=== PATIENT | female | born 1940 | race Caucasian/White ===

== ENCOUNTER 2023-10-14 16:47 | Inpatient (IN) | payer OTHER ==
[2023-10-14 17:36] LABS: BASO % 0.8 % (0-2.0); EOS % 0.9 % (0-4.5); HEMATOCRIT 53.7 % (32.4-45.2); HEMOGLOBIN 17.4 GM/dL (10.7-15.3); LYMPH % 21.5 % (8-40); MCH 30.3 pg (25.7-33.7); MCHC 32.5 g/dl (32.0-36.0); MEAN CELL VOLUME 93.4 fl (80-96); MEAN PLT VOLUME 9.4 fl (7.5-11.1); MONO % 15.2 % (3.8-10.2); NEUT % 61.6 % (42.8-82.8); PLATELET COUNT 116 10^3/uL (134-434); RBC 5.75 M/mm3 (3.60-5.2); RDW 16.2 % (11.6-15.6); WHITE BLOOD COUNT 10.1 K/mm3 (4.0-10.0)
[2023-10-14 17:43] LABS: INR 1.23 (0.83-1.09); PROTHROMBIN TIME (PATIENT) 14.2 SEC (9.7-13.0)
[2023-10-14 17:46] LABS: ACTIVATED PTT 30.5 SECONDS (25.2-36.5)
[2023-10-14 17:58] LABS: POTASSIUM 3.8 mmol/L (3.5-5.1)
[2023-10-14 18:01] LABS: BLOOD UREA NITROGEN 56.8 mg/dL (7-18); CALCIUM 10.5 mg/dL (8.5-10.1); MAGNESIUM 2.5 mg/dL (1.8-2.4)
[2023-10-14 18:02] LABS: ALBUMIN 3.6 g/dl (3.4-5.0)
[2023-10-14 18:04] LABS: CREATININE 2.2 mg/dL (0.55-1.3)
[2023-10-14 18:06] LABS: TOT PROT 7.4 g/dl (6.4-8.2)
[2023-10-14] MEDS: LACTATED RINGERS SOLUTION 1,000 ML/1,000 ML INFUS.BAG IV SCH (19:47)
[2023-10-14 20:03] LABS: EPI CELLS 35 /uL (0-25.1); HYALINE CASTS 3 /uL (0-3.1); URINE APPEARANCE CLOUDY; URINE BACTERIA 6630 /uL (0-1359); URINE BILIRUBIN NEGATIVE (NEGATIVE); URINE COLOR YELLOW; URINE GLUCOSE (UA) NEGATIVE (NEGATIVE); URINE KETONE 1+ (NEGATIVE); URINE LEUK ESTERASE 1+ (NEGATIVE); URINE NITRITE POSITIVE (NEGATIVE); URINE PROTEIN 1+ (NEGATIVE); URINE WBC 221 /uL (0-25.8)
[2023-10-14 20:07] LABS: URINE RBC 30.9 /uL (0-23.9)
[2023-10-14] MEDS ORDERED: ALBUTEROL SO4 HFA INHALER IH PRN (22:53)
[2023-10-15 00:47] VITALS: BMI 20.5
[2023-10-15] MEDS: DEXTROSE 5%-WATER - 1,000 ML IV SCH (01:17)
[2023-10-15] MEDS: LEVOTHYROXINE NA 100 MCG TABLET (FP) PO SCH (06:44)
[2023-10-15] MEDS: PATIENT'S OWN MEDICATION (NON-FORMULARY) (Lactose-Reduced Food [Ensure Liquid] 237 ML Liqu PO SCH (09:48)
[2023-10-15 09:55] LABS: BASO % 0.9 % (0-2.0); EOS % 2.9 % (0-4.5); HEMATOCRIT 47.8 % (32.4-45.2); HEMOGLOBIN 15.9 GM/dL (10.7-15.3); LYMPH % 19.1 % (8-40); MCH 30.9 pg (25.7-33.7); MCHC 33.2 g/dl (32.0-36.0); MEAN CELL VOLUME 93.1 fl (80-96); MEAN PLT VOLUME 9.6 fl (7.5-11.1); MONO % 13.6 % (3.8-10.2); NEUT % 63.5 % (42.8-82.8); PLATELET COUNT 101 10^3/uL (134-434); RBC 5.14 M/mm3 (3.60-5.2); RDW 15.3 % (11.6-15.6); WHITE BLOOD COUNT 7.4 K/mm3 (4.0-10.0)
[2023-10-15] MEDS ORDERED: COCONUT OIL 1000 MG PO SCH (10:00)
[2023-10-15] MEDS ORDERED: PATIENT'S OWN MEDICATION (NON-FORMULARY) (Alpha Lipoic Acid [Alpha Lipoic Acid] 600 MG Cap PO SCH (10:00)
[2023-10-15 10:07] LABS: POTASSIUM 3.5 mmol/L (3.5-5.1)
[2023-10-15 10:12] LABS: BLOOD UREA NITROGEN 44.3 mg/dL (7-18); CALCIUM 9.3 mg/dL (8.5-10.1)
[2023-10-15 10:16] LABS: CREATININE 1.4 mg/dL (0.55-1.3)
[2023-10-15] MEDS: FOLIC ACID 1 MG TABLET (FP) PO SCH (11:04)
[2023-10-15] MEDS: CYANOCOBALAMIN 1,000 MCG TABLET (FP) PO SCH (11:04)
[2023-10-15] MEDS: metoPROLOL SUCCINATE 25 MG TAB.SR.24H (FP) PO SCH (11:04)
[2023-10-15] MEDS: ASPIRIN 81 MG CHEWABLE TABLETS PO SCH (11:05)
[2023-10-15] MEDS: BUDESONIDE/FORMETEROL FUMARATE 80/4.5 mcg INHALER IH SCH (12:05)
[2023-10-15] MEDS: NYSTATIN 500,000 UNITS/5 ML SUSPENSION PO SCH (18:20)
[2023-10-15] MEDS: AZTREONAM 1 GM in DEXTROSE 5%-WATER - 50 ML IVPB SCH (18:20)
[2023-10-15] MEDS: DEXTROSE 5%-WATER - 1,000 ML with POTASSIUM CHLORIDE 10 MEQ IV SCH (18:49)
[2023-10-15] MEDS: DEXTROSE 5%-0.45% SALINE 1,000 ML IV SCH (18:49)
[2023-10-15] MEDS: POTASSIUM CHLORIDE 10 MEQ in DEXTROSE 5%-WATER - 1,000 ML IV SCH (21:33)
[2023-10-15] MEDS: DONEPEZIL HCL 5 MG TABLET (FP) PO SCH (22:37)
[2023-10-16 11:14] LABS: ALBUMIN 2.4 g/dl (3.4-5.0); BILIRUBIN,TOTAL 0.6 mg/dL (0.2-1); BLOOD UREA NITROGEN 27.1 mg/dL (7-18); CALCIUM 8.9 mg/dL (8.5-10.1); CREATININE 1.1 mg/dL (0.55-1.3); POTASSIUM 3.4 mmol/L (3.5-5.1); TOT PROT 5.5 g/dl (6.4-8.2)
[2023-10-16] MEDS: POTASSIUM CHLORIDE ORAL LIQUID 20 MEQ/15 ML PO ONE (12:32)
[2023-10-17 11:10] LABS: POTASSIUM 3.5 mmol/L (3.5-5.1)
[2023-10-17 11:17] LABS: ALBUMIN 2.6 g/dl (3.4-5.0); BLOOD UREA NITROGEN 16.7 mg/dL (7-18); CALCIUM 8.5 mg/dL (8.5-10.1)
[2023-10-17 11:22] LABS: BILIRUBIN,TOTAL 0.6 mg/dL (0.2-1); TOT PROT 5.4 g/dl (6.4-8.2)
[2023-10-17] MEDS: POTASSIUM CHLORIDE 10 MEQ in DEXTROSE 5%-WATER - 1,000 ML IV SCH ×2 (15:32→15:42)
[2023-10-18 09:00] LABS: BASO % 0.9 % (0-2.0); EOS % 5.3 % (0-4.5); HEMATOCRIT 45.2 % (32.4-45.2); HEMOGLOBIN 14.5 GM/dL (10.7-15.3); LYMPH % 25.8 % (8-40); MCH 29.9 pg (25.7-33.7); MCHC 32.2 g/dl (32.0-36.0); MEAN CELL VOLUME 93.1 fl (80-96); MEAN PLT VOLUME 9.3 fl (7.5-11.1); MONO % 10.6 % (3.8-10.2); NEUT % 57.4 % (42.8-82.8); PLATELET COUNT 99 10^3/uL (134-434); RBC 4.86 M/mm3 (3.60-5.2); RDW 14.7 % (11.6-15.6); WHITE BLOOD COUNT 7.2 K/mm3 (4.0-10.0)
[2023-10-18 09:16] LABS: POTASSIUM 3.5 mmol/L (3.5-5.1)
[2023-10-18 09:21] LABS: CALCIUM 8.2 mg/dL (8.5-10.1)
[2023-10-18 09:22] LABS: ALBUMIN 2.3 g/dl (3.4-5.0); BLOOD UREA NITROGEN 12.3 mg/dL (7-18)
[2023-10-18 09:25] LABS: CREATININE 0.8 mg/dL (0.55-1.3)
[2023-10-18 09:26] LABS: BILIRUBIN,TOTAL 0.6 mg/dL (0.2-1); TOT PROT 5.2 g/dl (6.4-8.2)
[2023-10-18] MEDS: POTASSIUM CHLORIDE 10 MEQ in DEXTROSE 5%-WATER - 1,000 ML IV SCH (15:07)
[2023-10-18] MEDS: POLYETHYLENE GLYCOL (HEALTHYLAX) 3350 17 GM PACKET PO SCH (18:18)
[2023-10-19 11:12] VITALS: RESP 18
[2023-10-19 12:31] LABS: POTASSIUM 3.8 mmol/L (3.5-5.1)
[2023-10-19 12:39] LABS: ALBUMIN 2.5 g/dl (3.4-5.0)
[2023-10-19 12:40] LABS: BLOOD UREA NITROGEN 11.2 mg/dL (7-18)
[2023-10-19 12:42] LABS: CREATININE 0.8 mg/dL (0.55-1.3)
[2023-10-19 12:44] LABS: BILIRUBIN,TOTAL 0.5 mg/dL (0.2-1); TOT PROT 5.7 g/dl (6.4-8.2)
[2023-10-19 12:46] LABS: CALCIUM 9.5 mg/dL (8.5-10.1)
[2023-10-19 19:04] VITALS: BP 125/77; PULSE 66; TEMP 97.8
[2023-10-20] MEDS ORDERED: LEVOTHYROXINE NA 75 MCG TABLET (FP) PO SCH (07:00)
== END 2023-10-19 19:26 | disposition home or self-care (01) | DRG 682 ==
LOC: EDBD 16:47 → JER 16:47 → JERBED 19:24 → J5S 10-15 00:32
PROVIDERS: ADMIT Internal Medicine; ATTEND Internal Medicine
DX: N17.9 Acute kidney failure, unspecified (principal); G93.41 Metabolic encephalopathy; B37.0 Candidal stomatitis; E87.0 Hyperosmolality and hypernatremia; E46 Unspecified protein-calorie malnutrition; R64 Cachexia; J44.9 Chronic obstructive pulmonary disease, unspecified; N13.6 Pyonephrosis; E03.9 Hypothyroidism, unspecified; F03.90 Unspecified dementia, unspecified severity, without behavioral disturbance, psychotic disturbance, mood disturbance, and anxiety; E78.5 Hyperlipidemia, unspecified; E86.0 Dehydration; R62.7 Adult failure to thrive; N28.1 Cyst of kidney, acquired
CPT/HCPCS: 0241U-QW; 36415; 71045-TC-FY; 74176-TC; 80048; 80053; 81003; 82962; 83036; 83690; 83735; 84439; 84443; 84484; 85025; 85610; 85730; 87040; 87086; 87186; 87635; 93005; 93010; 97116-GP; 97162-GP; 99285-25

== ENCOUNTER 2024-04-30 20:07 | Inpatient (IN) | payer OTHER ==
[2024-04-30] MEDS ORDERED: ACETAMINOPHEN INJECTION 100 ML ONE (21:23)
[2024-04-30] MEDS: SODIUM CHLORIDE 0.9% 500 ML INFUS.BAG IV ONE (21:29)
[2024-04-30] MEDS: ACETAMINOPHEN 1000 MG/100 ML BAG IVPB ONE (21:29)
[2024-04-30 21:30] LABS: VENOUS BASE EXCESS 0.2 mmol/L (-2-2); VENOUS PCO2 34.5 mmHg (38-52); VENOUS PH 7.453 (7.310-7.410)
[2024-04-30 21:35] LABS: BASO % 0.7 % (0-2.0); EOS % 0.3 % (0-4.5); HEMOGLOBIN 14.1 GM/dL (10.7-15.3); MCH 30.7 pg (25.7-33.7); MCHC 32.8 g/dl (32.0-36.0); MEAN CELL VOLUME 93.6 fl (80-96); MEAN PLT VOLUME 8.8 fl (7.5-11.1); MONO % 12.6 % (3.8-10.2); NEUT % 73.4 % (42.8-82.8); PLATELET COUNT 170 10^3/uL (134-434); RBC 4.59 M/mm3 (3.60-5.2); RDW 14.8 % (11.6-15.6); WHITE BLOOD COUNT 12.3 K/mm3 (4.0-10.0)
[2024-04-30 21:42] LABS: INR 1.07 (0.83-1.09); PROTHROMBIN TIME (PATIENT) 12.1 SEC (9.7-13.0)
[2024-04-30 21:44] LABS: ACTIVATED PTT 27.3 SECONDS (25.2-36.5)
[2024-04-30] MEDS ORDERED: CEFEPIME 2 GM/100 ML BAG IVPB ONE (21:46)
[2024-04-30] MEDS: CEFEPIME HCL 2 GM VIAL (RESTRICTED TO ID) IVPB ONE (21:51)
[2024-04-30 22:01] LABS: CALCIUM 9.3 mg/dL (8.5-10.1)
[2024-04-30 22:02] LABS: ALBUMIN 3.2 g/dl (3.4-5.0); BLOOD UREA NITROGEN 15.9 mg/dL (7-18)
[2024-04-30 22:06] LABS: TOT PROT 6.1 g/dl (6.4-8.2)
[2024-04-30 22:20] LABS: EPI CELLS 3 /uL (0-25.1); HYALINE CASTS 0 /uL (0-3.1); PH,URINE 6.5 (5.0-8.0); URINE APPEARANCE CLEAR; URINE BACTERIA 5270 /uL (0-1359); URINE BILIRUBIN NEGATIVE (NEGATIVE); URINE COLOR YELLOW; URINE GLUCOSE (UA) NEGATIVE (NEGATIVE); URINE KETONE NEGATIVE (NEGATIVE); URINE LEUK ESTERASE 3+ (NEGATIVE); URINE NITRITE NEGATIVE (NEGATIVE); URINE PROTEIN 1+ (NEGATIVE); URINE RBC 57 /uL (0-23.9); URINE WBC 889 /uL (0-25.8)
[2024-04-30] MEDS: VANCOMYCIN 1,000 MG in DEXTROSE 5%-WATER - 250 ML IVPB ONE (22:36)
[2024-05-01] MEDS ORDERED: ALBUTEROL SO4 HFA INHALER IH PRN (06:30)
[2024-05-01] MEDS: LEVOTHYROXINE NA 100 MCG TABLET (FP) PO SCH (07:37)
[2024-05-01 09:55] LABS: EOS % 0.5 % (0-4.5); HEMOGLOBIN 13.5 GM/dL (10.7-15.3); LYMPH % 12.6 % (8-40); MCH 31.7 pg (25.7-33.7); MCHC 33.7 g/dl (32.0-36.0); MEAN CELL VOLUME 93.9 fl (80-96); MEAN PLT VOLUME 9.2 fl (7.5-11.1); MONO % 9.6 % (3.8-10.2); NEUT % 76.3 % (42.8-82.8); PLATELET COUNT 145 10^3/uL (134-434); RBC 4.25 M/mm3 (3.60-5.2); RDW 14.7 % (11.6-15.6); WHITE BLOOD COUNT 11.9 K/mm3 (4.0-10.0)
[2024-05-01] MEDS ORDERED: COCONUT OIL 1000 MG PO SCH (10:00)
[2024-05-01] MEDS ORDERED: PATIENT'S OWN MEDICATION (NON-FORMULARY) (Alpha Lipoic Acid [Alpha Lipoic Acid] 600 MG Cap PO SCH (10:00)
[2024-05-01 10:15] LABS: POTASSIUM 3.9 mmol/L (3.5-5.1)
[2024-05-01 10:19] LABS: BLOOD UREA NITROGEN 14.2 mg/dL (7-18)
[2024-05-01 10:21] LABS: CREATININE 0.8 mg/dL (0.55-1.3)
[2024-05-01] MEDS: POLYETHYLENE GLYCOL (HEALTHYLAX) 3350 17 GM PACKET PO SCH (10:26)
[2024-05-01] MEDS: AZTREONAM 1 GM in DEXTROSE 5%-WATER - 50 ML IVPB SCH ×2 (10:26→17:07)
[2024-05-01] MEDS: FOLIC ACID 1 MG TABLET (FP) PO SCH (10:26)
[2024-05-01] MEDS: ASPIRIN 81 MG CHEWABLE TABLETS PO SCH (10:26)
[2024-05-01] MEDS: ASCORBIC ACID 500 MG TABLET (FP) PO SCH (10:26)
[2024-05-01] MEDS: BUDESONIDE/FORMOTEROL FUMARATE 80-4.5 MCG (10.3 GM INHALER) IH SCH (11:08)
[2024-05-01] MEDS: CYANOCOBALAMIN 1,000 MCG TABLET (FP) PO SCH (11:53)
[2024-05-01] MEDS: ATORVASTATIN CA 40 MG TABLET (FP) PO SCH (21:18)
[2024-05-01] MEDS: DONEPEZIL HCL 5 MG TABLET (FP) PO SCH (21:18)
[2024-05-01] MEDS: ACETAMINOPHEN 325 MG TABLET (FP) PO PRN (22:20)
[2024-05-02] MEDS: AZTREONAM 1 GM in DEXTROSE 5%-WATER - 50 ML IVPB SCH (01:44)
[2024-05-02] MEDS: ASPIRIN COATED 81 MG TABLET.EC PO SCH (09:56)
[2024-05-02 09:58] LABS: BASO % 0.8 % (0-2.0); EOS % 1.4 % (0-4.5); HEMATOCRIT 43.6 % (32.4-45.2); HEMOGLOBIN 14.4 GM/dL (10.7-15.3); MCH 31.5 pg (25.7-33.7); MEAN CELL VOLUME 95.4 fl (80-96); MEAN PLT VOLUME 9.2 fl (7.5-11.1); MONO % 10.3 % (3.8-10.2); NEUT % 72.5 % (42.8-82.8); PLATELET COUNT 137 10^3/uL (134-434); RBC 4.57 M/mm3 (3.60-5.2); RDW 14.8 % (11.6-15.6); WHITE BLOOD COUNT 9.1 K/mm3 (4.0-10.0)
[2024-05-02 10:16] LABS: POTASSIUM 4.6 mmol/L (3.5-5.1)
[2024-05-02 10:25] LABS: CALCIUM 9.2 mg/dL (8.5-10.1)
[2024-05-02 10:26] LABS: ALBUMIN 2.8 g/dl (3.4-5.0); BLOOD UREA NITROGEN 15.1 mg/dL (7-18)
[2024-05-02 10:28] LABS: BILIRUBIN,TOTAL 1.2 mg/dL (0.2-1)
[2024-05-03 09:38] LABS: BASO % 0.9 % (0-2.0); EOS % 3.7 % (0-4.5); HEMATOCRIT 42.9 % (32.4-45.2); HEMOGLOBIN 14.5 GM/dL (10.7-15.3); MCH 31.3 pg (25.7-33.7); MCHC 33.7 g/dl (32.0-36.0); MEAN CELL VOLUME 92.9 fl (80-96); MEAN PLT VOLUME 8.5 fl (7.5-11.1); MONO % 14.8 % (3.8-10.2); NEUT % 60.6 % (42.8-82.8); PLATELET COUNT 175 10^3/uL (134-434); RBC 4.62 M/mm3 (3.60-5.2); RDW 14.7 % (11.6-15.6); WHITE BLOOD COUNT 6.1 K/mm3 (4.0-10.0)
[2024-05-03 09:56] LABS: POTASSIUM 4.1 mmol/L (3.5-5.1)
[2024-05-03 09:59] LABS: BLOOD UREA NITROGEN 14.9 mg/dL (7-18); CALCIUM 9.3 mg/dL (8.5-10.1)
[2024-05-03 10:02] LABS: CREATININE 0.9 mg/dL (0.55-1.3)
[2024-05-05 10:16] LABS: BASO % 0.8 % (0-2.0); EOS % 4.8 % (0-4.5); HEMATOCRIT 41.9 % (32.4-45.2); HEMOGLOBIN 14.2 GM/dL (10.7-15.3); LYMPH % 19.7 % (8-40); MCH 31.5 pg (25.7-33.7); MCHC 33.8 g/dl (32.0-36.0); MEAN PLT VOLUME 8.1 fl (7.5-11.1); MONO % 12.7 % (3.8-10.2); PLATELET COUNT 207 10^3/uL (134-434); RBC 4.51 M/mm3 (3.60-5.2); RDW 14.4 % (11.6-15.6)
[2024-05-05 10:30] LABS: POTASSIUM 4.1 mmol/L (3.5-5.1)
[2024-05-05 10:36] LABS: BLOOD UREA NITROGEN 16.5 mg/dL (7-18); CALCIUM 9.4 mg/dL (8.5-10.1)
[2024-05-05 10:38] LABS: CREATININE 0.9 mg/dL (0.55-1.3)
[2024-05-06 10:29] LABS: BASO % 0.9 % (0-2.0); EOS % 4.2 % (0-4.5); HEMATOCRIT 45.3 % (32.4-45.2); HEMOGLOBIN 15.1 GM/dL (10.7-15.3); LYMPH % 21.1 % (8-40); MCH 31.1 pg (25.7-33.7); MCHC 33.4 g/dl (32.0-36.0); MEAN CELL VOLUME 93.2 fl (80-96); MONO % 9.4 % (3.8-10.2); NEUT % 64.4 % (42.8-82.8); PLATELET COUNT 218 10^3/uL (134-434); RBC 4.86 M/mm3 (3.60-5.2); RDW 14.5 % (11.6-15.6); WHITE BLOOD COUNT 8.1 K/mm3 (4.0-10.0)
[2024-05-06 10:49] LABS: POTASSIUM 4.4 mmol/L (3.5-5.1)
[2024-05-06 10:54] LABS: BLOOD UREA NITROGEN 17.3 mg/dL (7-18); CALCIUM 9.5 mg/dL (8.5-10.1)
[2024-05-06 10:57] LABS: CREATININE 0.8 mg/dL (0.55-1.3)
[2024-05-07 13:42] VITALS: RESP 18
[2024-05-08 10:22] VITALS: BP 139/57; PULSE 57; TEMP 97.7
[2024-05-08 20:48] VITALS: BMI 27.1
== END 2024-05-08 14:10 | DRG 871 ==
LOC: JER 20:07 → JERBED 22:55 → J6S 05-01 02:52
PROVIDERS: ADMIT Internal Medicine; ATTEND Internal Medicine
DX: A41.9 Sepsis, unspecified organism (principal); G93.41 Metabolic encephalopathy; N39.0 Urinary tract infection, site not specified; E03.9 Hypothyroidism, unspecified; F03.90 Unspecified dementia, unspecified severity, without behavioral disturbance, psychotic disturbance, mood disturbance, and anxiety; J44.9 Chronic obstructive pulmonary disease, unspecified; I10 Essential (primary) hypertension; E78.5 Hyperlipidemia, unspecified; R63.0 Anorexia; E86.0 Dehydration
CPT/HCPCS: 0241U-QW; 36415; 71045-TC-FY; 80048; 80053; 81003; 82803; 83605; 84484; 85025; 85610; 85730; 86850; 86900; 86901; 87040; 87086; 87186; 93005; 93010; 97116-GP; 97162-GP; 99285-25; J0131